=== PATIENT | female | born 1955 | race Caucasian/White ===

== ENCOUNTER → 2016-07-21 | Outpatient (CLI) | payer OTHER | LOC: MMPC 10:00 | PROVIDERS: ATTEND Podiatrist Foot & Ankle Surgery | DX: M79.672 Pain in left foot (principal); L84 Corns and callosities; D49.2 Neoplasm of unspecified behavior of bone, soft tissue, and skin; D16.31 Benign neoplasm of short bones of right lower limb; E10.65 Type 1 diabetes mellitus with hyperglycemia; F17.209 Nicotine dependence, unspecified, with unspecified nicotine-induced disorders; M21.622 Bunionette of left foot; M20.42 Other hammer toe(s) (acquired), left foot; M21.621 Bunionette of right foot | CPT/HCPCS: 11055 ×2; 99213; G0463 ==

== ENCOUNTER → 2016-08-11 | Outpatient (CLI) | payer OTHER | LOC: MMPC 10:00 | PROVIDERS: ATTEND Podiatrist Foot & Ankle Surgery | DX: M19.172 Post-traumatic osteoarthritis, left ankle and foot (principal); E10.65 Type 1 diabetes mellitus with hyperglycemia; F17.209 Nicotine dependence, unspecified, with unspecified nicotine-induced disorders; L98.9 Disorder of the skin and subcutaneous tissue, unspecified | CPT/HCPCS: 11420 ×2; 99213; G0463 ==

== ENCOUNTER → 2016-08-25 | Outpatient (CLI) | payer OTHER | LOC: MMPC 10:00 | PROVIDERS: ATTEND Podiatrist Foot & Ankle Surgery | DX: L81.4 Other melanin hyperpigmentation (principal); E10.9 Type 1 diabetes mellitus without complications; F17.209 Nicotine dependence, unspecified, with unspecified nicotine-induced disorders | CPT/HCPCS: 99212 ==

== ENCOUNTER → 2016-11-09 | Outpatient (CLI) | payer OTHER ==
[2016-11-09 08:54] LABS: HEMOGLOBIN A1C 9.59 % (4.2-6.0)
[2016-11-09 09:01] LABS: BLOOD UREA NITROGEN 17 mg/dL (7-22); BUN/CREATININE RATIO 24.28 (6-20); CALCIUM 9.3 mg/dL (8.7-10.7); CHOL/HDL RATIO 3.08 RATIO (0-4.0); EST GLOMERULAR FILTRATION > 60 (>60 ml/min/1.73m(2)); HDL CHOLESTEROL 78 mg/dL (40-150); SERUM CHOLESTEROL 241 mg/dL (120-200)
[2016-11-09 09:08] LABS: CREATININE, URINE 191.6 MG/DL (15-500)
[2016-11-09 10:43] LABS: FREE T4 (FREE THYROXINE) 1.41 ng/dL (0.93-1.71)
== END ==
LOC: LAB 08:28
PROVIDERS: ATTEND Internal Medicine
DX: E11.9 Type 2 diabetes mellitus without complications (principal); Z79.4 Long term (current) use of insulin; E78.5 Hyperlipidemia, unspecified; E89.0 Postprocedural hypothyroidism; F17.200 Nicotine dependence, unspecified, uncomplicated
CPT/HCPCS: 36415; 80053; 80061; 82043; 82550; 83036; 84439; 84443

== ENCOUNTER → 2016-11-14 | Outpatient (CLI) | payer OTHER ==
--- NOTE | 2016-11-14 14:32 | DI ---
US CAROTIDS B/L,11/14/2016 12:57 PM: Clinical History: Bilateral carotid bruits Previous Exam: None at this facility. Findings: Multiple grayscale and color Doppler sonographic images are obtained through the carotid systems bila terally, and demonstrate dense carotid plaques within the carotid bulbs bilaterally. There is endothelial thickening throughout the remainder of the carotid systems. There is no elevated peak systolic velocity in the right and there is only mild spectral broadening. On the left, there is significant increased peak systolic velocities involving the proximal mid and d istal internal carotid arteries. There is antegrade flow within both vertebral arteries. The ICA to CCA ratio on the right measured 1.5 and on the left measured 4.1. There is significant turbulence within the left internal carotid artery. Impression: Elevated peak systolic velocity within the internal carotid artery on the left corresponding with an estimated degree of stenosis of greater than 70% proximally. Atherosclerotic disease of the right carotid bulb without hemodynamically significant stenosis.
== END ==
LOC: US 12:54
PROVIDERS: ATTEND Internal Medicine
DX: R09.89 Other specified symptoms and signs involving the circulatory and respiratory systems (principal); F17.200 Nicotine dependence, unspecified, uncomplicated
CPT/HCPCS: 93880

== ENCOUNTER → 2017-01-08 | Outpatient (CLI) | payer OTHER ==
[2017-01-08 08:20] LABS: CREATININE, URINE 123.7 MG/DL (15-500); HEMOGLOBIN A1C 8.48 % (4.2-6.0)
[2017-01-08 08:24] LABS: BLOOD UREA NITROGEN 20 mg/dL (7-22); BUN/CREATININE RATIO 28.57 (6-20); CALCIUM 8.7 mg/dL (8.7-10.7); CHOL/HDL RATIO 2.53 RATIO (0-4.0); EST GLOMERULAR FILTRATION > 60 (>60 ml/min/1.73m(2)); HDL CHOLESTEROL 65 mg/dL (40-150); SERUM ALBUMIN 3.6 g/dL (3.5-4.8); SERUM CHOLESTEROL 165 mg/dL (120-200)
== END ==
LOC: LAB 07:54
PROVIDERS: ATTEND Internal Medicine
DX: E10.65 Type 1 diabetes mellitus with hyperglycemia (principal); Z79.4 Long term (current) use of insulin; E78.5 Hyperlipidemia, unspecified; E89.0 Postprocedural hypothyroidism; F17.209 Nicotine dependence, unspecified, with unspecified nicotine-induced disorders
CPT/HCPCS: 36415; 80053; 80061; 82043; 82550; 83036; 84443

== ENCOUNTER → 2017-01-09 | Outpatient (CLI) | payer OTHER | LOC: MMPC 11:11 | PROVIDERS: ATTEND Internal Medicine | DX: E10.9 Type 1 diabetes mellitus without complications (principal); E78.5 Hyperlipidemia, unspecified; E89.0 Postprocedural hypothyroidism; L84 Corns and callosities; Z98.890 Other specified postprocedural states; F17.219 Nicotine dependence, cigarettes, with unspecified nicotine-induced disorders | CPT/HCPCS: 99214; G0463 ==

== ENCOUNTER 2018-07-15 11:08 | Inpatient (IN) ==
[2018-07-15] MEDS ORDERED: ONDANSETRON 4 MG/2 ML VIAL IVP ONE (11:41)
[2018-07-15] MEDS ORDERED: FAMOTIDINE 20 MG/2 ML VIAL IVP ONE (11:41)
[2018-07-15] MEDS ORDERED: Sodium Chloride 0.9% 1,000 ML PRIMARY IV ONE (11:41)
[2018-07-15 11:50] LABS: BASOPHILS # (AUTO) 0.06 10*3/UL; BASOPHILS % (AUTO) 0.6 % (0-1); EOSINOPHILS # (AUTO) 0.01 10*3/UL; EOSINOPHILS % (AUTO) 0.1 % (0-8); Hematocrit [HCT] 44.4 % (37.0-47.0); Hemoglobin [HGB] 14.9 g/dL (12.0-16.0); LYMPHOCYTES # (AUTO) 1.96 10*3/uL; MEAN CORPUSCULAR HEMOGLOBIN 30.9 PG (27-31); MEAN CORPUSCULAR HGB CONC 33.6 g/dL (33-37); MEAN CORPUSCULAR VOLUME 92.1 FL (81-99); MEAN PLATELET VOLUME 11.6 FL (7.4-12.2); MONOCYTES # (AUTO) 0.48 10*3/UL (0.3-0.8); MONOCYTES % (AUTO) 4.4 % (5-15); NEUTROPHILS # (AUTO) 8.35 10*3/UL; NEUTROPHILS % (AUTO) 76.6 % (50-80); PLATELET MORPHOLOGY COMMENT NORMAL MORPHOLOGY (NORM); RBC MORPHOLOGY COMMENT NORMAL MORPHOLOGY (NORM); RED BLOOD COUNT 4.82 10^6/uL (4.20-5.40); WBC MORPHOLOGY COMMENT NORMAL MORPHOLOGY (NORM)
--- NOTE | 2018-07-15 11:53 | EKG ---
[address] [place] [address] Measurements Intervals [place] Rate: 88 P: 69 MI: 163 QRS: 75 QRSD: 90 T: 63 QT: 330 QTc: 376 Interpretive Statements SINUS RHYTHM POSSIBLE LEFT ATRIAL ENLARGEMENT NONSPECIFIC T-WAVE ABNORMALITY Compared to ECG 10/24/2013 16:29:28 Sinus tachycardia no longer present Possible ischemia no longer present T-wave abnormality still present Electronically Signed On 07-15-18 14:34:32 MST by Ozzy Stacy [id number]
[2018-07-15 12:01] LABS: BLOOD UREA NITROGEN 21 mg/dL (7-22); BUN/CREATININE RATIO 26.25 (6-20); LIPASE 41 IU/L (23-300); SERUM ALBUMIN 4.5 g/dL (3.5-4.8)
--- NOTE | 2018-07-15 12:06 | PDOC ---
Nausea/Vomiting/Diarrhea HPI - General Chief Complaint: Nausea / Vomiting / Diarrhea Stated Complaint: NAUSEA/VOMITING Date Seen by Provider: 07/15/18 Time Seen by Provider: 11:25 Source: POSITIVE: Patient Exam Limitations: POSITIVE: No limitations Nurse's Notes Reviewed & Considered: Yes - History of Present Illness Initial Comments: The patient is a 63-year-old female who is a type I diabetic who presents to the emergency department with complaints of elevated blood sugar and nausea and vomiting. She states that she normally takes Levemir 35 units in the evening as well as Humalog sliding scale. She ran out of Levemir 2 nights ago and has been just using sliding scale. For the past 2 days she has had increased nausea and vomiting. She reports frequent urination. She denies significant abdominal pain, chest pain, shortness of breath, headache or any other associated symptoms. - Patient Home Medications Home Medications: Home Medications Aspirin [Aspirin EC] 1 tab ORAL BID #90 tab 08/20/12 Cholecalciferol (Vitamin D3) [Vitamin D-3] 1 cap PO QD #90 cap 08/20/12 Tums 1 tab PO TID #270 tab 08/20/12 Lancets 1 ea SUBCUT ACHS #100 ea 11/26/12 Pen Needle,Dual Safety,Diabetc [Autoshield Duo Pen Needle] 1 ea MC HS #1 box 05/03/13 Insulin Lispro Flexpen Inj [Humalog Flexpen Inj] 10 unit SQ ACHS #1 box 11/09/16 Levothyroxine Sodium 1 tab PO DAILY #90 tab 11/09/16 Lisinopril 1 tab PO BID #180 tab 11/09/16 Rosuvastatin Calcium [Crestor] 1 tab PO DAILY #90 tab 11/09/16 Omeprazole 20 mg PO BID #60 cap 11/14/16 blood sugar diagnostic strips 1 strip MISCELLANEOUS ACHS #400 strip 08/18/17 tramadol 50 mg tablet 50 mg PO Q8H PRN #90 tab 06/14/18 Insulin Detemir Flexpen Inj [Levemir Flexpen Inj] 35 unit SUBCUT BEDTIME 07/15/18 - Patient Allergies Allergies/Adverse Reactions: Allergies Allergy/AdvReac Type Severity Reaction Status Date / Time No Known Drug Allergies Allergy NOT Verified 07/15/18 11:36 APPLICABLE Past Medical History - heen HEENT History: Dentures/Partials Additional HEENT History: UPPER Cardiovascular History: Hyperlipidemia Respiratory History: Denies History Gastrointestinal History: GERD Additional Gastrointestinal History: CONSTIPATION. SEVERE ESOPHAGITIS ON EGD Genitourinary History: Denies History Endocrine History: Type 1 Diabetes Additional Endocrine History: GRAVES DISEASE IN PAST, THYROIDECTOMY Musculoskeletal History: Back Pain, Osteoarthritis Prosthesis or Implant: Yes (LEFT tibia ORIF) Additional Musculoskeletal History: DEGENERATIVE DISC DISEASE Neurological History: Denies History Blood Disorders: Denies History Psychiatric History: Denies History History of Sexually Transmitted Diseases: No Female Reproductive History: Denies History LMP: post priya Obstetrical History: Denies History Cancer History: Denies History In Past Year Been Physically Harmed or Verbally Threatened: No History of MDRO: No History of Other Communicable Diseases: No Tobacco Use: Current Every Day Smoker Alcohol Use: Rarely In the Past 12 Months, Have Used or Abuse Any Substance: None Previous Surgical History: Yes Type / Date of Surgery: EGD/ LEFT TIBIA FX WITH HWR/ THYROIDECTOMY/ CERVICAL FUSION Anesthesia Reactions: No Malignant Hyperthermia: No Significant Family History: No pertinent family hx Past Medical History Reviewed: Reviewed - No Changes ROS - Limitations ROS Limitations: No Limitations Constitution: DENIES: Fever Cardiovascular: REPORTS: Denies Cardiac Symptoms Respiratory: REPORTS: Denies Resp Symptoms Neurological: REPORTS: Denies Neuro Symptoms Gastrointestinal: REPORTS: Nausea, Vomitting Endocrine: REPORTS: Fatigue Musculoskeletal: REPORTS: Denies MS Symptoms Genitourinary: REPORTS: Other (Frequent urination). DENIES: Dysuria, Difficulty Urinating Eyes: REPORTS: Denies Symptoms ENT: REPORTS: Denies Symptoms Skin: DENIES: Rash Nausea/Vomiting/Diarrhea Exam - General Appearance General Appearance: POSITIVE: Alert, Cooperative, No Acute Distress - HEENT HEENT: POSITIVE: Head Inspection Nml, Eyes Inspection Nml, Ears Inspection Nml, Nose Inspection Nml, Pharynx Inspect. Nml - Neck Neck: POSITIVE: Supple. NEGATIVE: Lymphadenopathy - Respiratory Respiratory: POSITIVE: No Respiratory Distress, Breath Sounds Normal - Cardiovascular Cardiovascular: POSITIVE: Regular Rate and Rhythm, Heart Sounds Normal Peripheral Pulses: Dorsalis-pedis (R): 2+, Dorsalis-pedis (L): 2+ - Abdomen Abdomen: Soft: (All Quadrants), Denies Tenderness: (All Quadrants), No Distention: (All Quadrants) - Skin Skin: POSITIVE: Intact, No Rash - Extremities Extremity: Normal ROM: (All Extremities), Normal Inspection: (All Extremities) - Neurological / Psychological Neurological: POSITIVE: Oriented X3, release engineer Normal As Tested, Motor Normal, Sensation Normal N/V/D Progress - Results Reviewed by me Lab Results Reviewed by Me: Yes CBC and BMP: 07/15/18 11:08 07/15/18 11:08 Lab Results:: Laboratory Results 07/15/18 07/15/18 07/15/18 11:08 11:08 11:08 WBC 10.89 H RBC 4.82 Hgb 14.9 Hct 44.4 MCV 92.1 MCH 30.9 MCHC 33.6 RDW Std Deviation 46.6 RDW Coeff of Zachary 14.0 Plt Count 284 MPV 11.6 Immature Gran % (Auto) 0.3 Neut % (Auto) 76.6 Lymph % (Auto) 18.0 [place] % (Auto) 4.4 L Eos % (Auto) 0.1 Baso % (Auto) 0.6 Immature Gran # (Auto) 0.03 Neut # (Auto) 8.35 Lymph # (Auto) 1.96 [place] # (Auto) 0.48 Eos # (Auto) 0.01 Baso # (Auto) 0.06 WBC Morphology Comment Normal morphology Plt Morphology Comment Normal morphology RBC Morph Comment Normal morphology VBG pH VBG pCO2 VBG HCO3 VBG Base Excess Sodium 137 Potassium 4.3 Chloride 109 Carbon Dioxide 16 L Anion Gap 12 BUN 21 Creatinine 0.8 Estimated GFR > 60 BUN/Creatinine Ratio 26.25 H Glucose 318 H Calculated Osmolality 298.0 H Calcium 10.1 Magnesium 2.3 Total Bilirubin 0.8 AST 29 ALT 18 Alkaline Phosphatase 173 H Troponin I < 0.012 C-Reactive Protein 0.6 Total Protein 7.6 Albumin 4.5 Globulin 3.0 Albumin/Globulin Ratio 1.50 Amylase 32 Lipase 41 07/15/18 11:58 WBC RBC Hgb Hct MCV MCH MCHC RDW Std Deviation RDW Coeff of Zachary Plt Count MPV Immature Gran % (Auto) Neut % (Auto) Lymph % (Auto) [place] % (Auto) Eos % (Auto) Baso % (Auto) Immature Gran # (Auto) Neut # (Auto) Lymph # (Auto) [place] # (Auto) Eos # (Auto) Baso # (Auto) WBC Morphology Comment Plt Morphology Comment RBC Morph Comment VBG pH 7.31 L VBG pCO2 30 L VBG HCO3 15 L VBG Base Excess -11 L Sodium Potassium Chloride Carbon Dioxide Anion Gap BUN Creatinine Estimated GFR BUN/Creatinine Ratio Glucose Calculated Osmolality Calcium Magnesium Total Bilirubin AST ALT Alkaline Phosphatase Troponin I C-Reactive Protein Total Protein Albumin Globulin Albumin/Globulin Ratio Amylase Lipase EKG Interpreted/Reviewed By Me:: Yes EKG Interpretation:: POSITIVE: Normal Sinus Rhythm, Normal Rate, Normal Intervals, Normal QRS, Normal ST/T, Other (No changes when compared to previous EKG from 2013) - Patient's Progress MDM / ED Course: The patient appeared to be somewhat clinically dehydrated on arrival. An IV was established and she received 1 L bolus of normal saline as well as 4 mg of Zofran and 20 mg of Pepcid IV. Initial venous blood gas reveals a pH of 7.30. She has a mildly elevated white count and her blood sugar here initially was 318. Her bicarbonate is 16 and her anion gap was registered as 22 on the venous blood gas and 12 on the lab draw. She appears to have mild DKA. She is feeling better after administration of fluids and her blood sugar has come down to 260. I did discuss these findings with the patient and her significant other. I also discussed the patient with Dr. Hinson and he is agreed to admit the patient for further treatment. The patient also prefers being admitted and is in agreement with this plan. - Consult Counseled: POSITIVE: Patient, Family, RE: Lab Results, RE: DX, RE: Need for F/U Patient Care Time - Estimated PCT Patient Care Time (In Minutes): 35 Vital Signs - Recent Vital Signs Vital Signs: Vital Signs (Last 8 hours) Temp Pulse Resp BP Pulse Ox 07/15/18 11:09 97.0 F 101 H 20 101/67 96 - VS Reviewed Vital Signs Reviewed: Yes Discharge Clinical Impression: DKA (diabetic ketoacidoses), Diabetes mellitus type 1, Dehydration, Nausea and vomiting Discharge Disposition: Admit to Observation Condition: Fair Follow Up With: PROSPER CIHNCHILLA [Primary Care Provider] -
[2018-07-15 12:35] LABS: VENOUS PH 7.31 (7.32-7.42)
--- NOTE | 2018-07-15 14:02 | PDOC ---
HPI - History of Present Illness Date of Service: 07/15/18 Time of Service: 15:00 Chief Complaint: Vomiting of 2-3 days duration with a high blood sugar for the last 3 days History of Present Illness: This is a 63 years old female with medical history significant for history of diabetes on insulin, hyperlipidemia, history of Graves' disease status post surgery on thyroid replacement who presented to the hospital with history of vomiting and high blood sugar the last 3 days. She said she vomited maybe 4 times yesterday and 3 times this morning. She is on Levemir 35 units at night however she was not able to get her medications refilled and she ran out on Monday. She is beginning giving herself short-acting insulin. Today her blood sugar was high in the 400 and because of the vomiting and high blood sugars she came into the ER. Evaluation revealed mild DKA she was given fluids and was admitted. She feels better compared to when she came in. She said she is hungry now. Past Medical History Medical History: 1. Diabetes on insulin. 2. Hypercholesterolemia. 3. Hypertension. 4. History of left carotid endarterectomy. 5. History of Graves' disease status post surgery Surgical History: 1. Status post left endarterectomy. 2. Status post thyroidectomy Family History: Reviewed an Not Pertinent Past Social History: She is smoker maybe three-quarter of for a pack a day for many years, doesn't drink no drugs. Lives in [place] with her . Tobacco Use: Current Every Day Smoker Do you dip or chew tobacco: No In the Past 12 Months, Have Used or Abuse Any of the Following Substance: None Alcohol Use: None Medication / Allergies Home Medications: Home Medications Medication Instructions Recorded Confirmed Type Aspirin [Aspirin EC] 1 tab ORAL BID #90 tab 08/20/12 07/15/18 History Cholecalciferol (Vitamin D3) 1 cap PO QD #90 cap 08/20/12 07/15/18 History [Vitamin D-3] Tums 1 tab PO TID #270 tab 08/20/12 07/15/18 Clinic Lancets 1 ea SUBCUT ACHS #100 ea 11/26/12 07/15/18 History Pen Needle,Dual Safety,Diabetc 1 ea MC HS #1 box 05/03/13 07/15/18 History [Autoshield Duo Pen Needle] Insulin Lispro Flexpen Inj 10 unit SQ ACHS #1 box 11/09/16 07/15/18 Rx [Humalog Flexpen Inj] Levothyroxine Sodium 1 tab PO DAILY #90 tab 11/09/16 07/15/18 Rx Lisinopril 1 tab PO BID #180 tab 11/09/16 07/15/18 Rx Rosuvastatin Calcium [Crestor] 1 tab PO DAILY #90 tab 11/09/16 07/15/18 Rx Omeprazole 20 mg PO BID #60 cap 11/14/16 07/15/18 Rx blood sugar diagnostic strips 1 strip MISCELLANEOUS ACHS #400 08/18/17 07/15/18 Rx strip tramadol 50 mg tablet 50 mg PO Q8H PRN #90 tab 06/14/18 07/15/18 Rx Insulin Detemir Flexpen Inj 35 unit SUBCUT BEDTIME 07/15/18 07/15/18 History [Levemir Flexpen Inj] Allergies/Adverse Reactions: Allergies Allergy/AdvReac Type Severity Reaction Status Date / Time No Known Drug Allergies Allergy NOT Verified 07/15/18 11:36 APPLICABLE Review of Systems - Review of Systems All Systems: Reviewed & No Additional Complaints Except as Stated Exam - Vitals Vital Signs: Vital Signs Temperature 97.0 F Temperature Source Temporal Artery Scan Pulse Rate [Pulse Oximeter 101 Right] Respiratory Rate 20 Blood Pressure [Left Arm] 101/67 Pulse Ox 96 Oxygen Delivery Method Room Air Height 5 ft 6 in Weight 160 lb - General General Appearance: No Acute Distress, Cooperative - Head Head Exam: Normal Inspection - Eye Eye Exam: POSITIVE: Normal Appearance - ENT ENT Exam: POSITIVE: Normal Exam - Neck Neck Exam: Normal Inspection - Respiratory Respiratory Exam: POSITIVE: Clear to Auscultation - Bilaterally - Cardiovascular Cardiovascular Exam: POSITIVE: RRR - GI/Abdominal GI/Abdominal Exam: POSITIVE: Normal Bowel Sounds, Non Tender, Non Distended, Soft, No Organomegaly - Rectal Rectal Exam: POSITIVE: Deferred - External Exam: POSITIVE: Deferred - Extremities Extremities Exam: POSITIVE: Normal Inspection - Back Back Exam: POSITIVE: Normal Inspection - Neurological Neurological Exam: POSITIVE: Alert, Oriented x 3, CN II-XII Intact, No Facial Droop, Speech Intact / Clear, Moves All Extremities Equally - Psychiatric Psychiatric Exam: POSITIVE: Normal Affect - Integumentary Integumentary Exam: POSITIVE: Normal Color Results - Labs CBC and BMP: 07/15/18 11:08 07/15/18 11:08 - EKG Data -: EKG Interpreted by Me Rate: Normal EKG Shows Normal: Sinus Rhythm (Sinus rhythm, possible left atrial enlargement and nonspecific T-wave changes) Assessment and Plan - Patient Problems (1) DKA (diabetic ketoacidoses) Current Visit: Yes Status: Acute Comment: She had mild DKA, her blood sugar seems to be better now. I think will give IV fluid. Will put her on sliding scale and will reinstitute her Levemir tonight. Will repeat her labs tomorrow see how she feels tomorrow. Code(s): E13.10 - Other specified diabetes mellitus with ketoacidosis without coma (2) History of hypothyroidism Current Visit: Yes Status: Acute Comment: Same med Code(s): Z86.39 - Personal history of other endocrine, nutritional and metabolic disease (3) Hypertension Current Visit: Yes Status: Acute Comment: Continue lisinopril Code(s): I10 - Essential (primary) hypertension
[2018-07-15] MEDS ORDERED: LIDOCAINE W/ SODIUM BICARB 0.5 ML SYR SUBD PRN (14:40)
[2018-07-15] MEDS ORDERED: ACETAMINOPHEN 325 MG TABLET PO PRN (14:40)
[2018-07-15] MEDS ORDERED: CALCIUM CARBONATE 500 MG (TUMS) CHEWABLE TABLET PO PRN (14:40)
[2018-07-15] MEDS ORDERED: DOCUSATE 100 MG CAPSULE PO PRN (14:40)
[2018-07-15] MEDS ORDERED: ONDANSETRON 4 MG/2 ML VIAL IVP PRN (14:40)
[2018-07-15] MEDS ORDERED: traMADol 50 MG TABLET PO PRN (14:42)
[2018-07-15] MEDS: Lactated Ringers 1,000 ML PRIMARY IV SCH ×2 (15:28→22:59)
[2018-07-15] MEDS: Insulin Lispro Flexpen 300 UNIT/3 ML INSULN.PEN SUBCUT SCH ×2 (16:29→21:19)
[2018-07-15] MEDS: Insulin Detemir 300unit/3ml Flexpen SUBCUT SCH (21:19)
[2018-07-15] MEDS: LISINOPRIL 5 MG TABLET PO SCH (21:21)
[2018-07-15] MEDS: ASPIRIN EC 81 MG TABLET PO SCH (21:21)
[2018-07-15] MEDS: OMEPRAZOLE 20 MG CAPSULE PO SCH (21:21)
[2018-07-16] MEDS: LEVOTHYROXINE 125 MCG TABLET PO SCH (04:44)
[2018-07-16] MEDS: Lactated Ringers 1,000 ML PRIMARY IV SCH ×3 (04:45→20:34)
[2018-07-16 05:45] LABS: BASOPHILS # (AUTO) 0.05 10*3/UL; BASOPHILS % (AUTO) 0.6 % (0-1); EOSINOPHILS # (AUTO) 0.18 10*3/UL; Hemoglobin [HGB] 11.4 g/dL (12.0-16.0); LYMPHOCYTES # (AUTO) 3.26 10*3/uL; MEAN CORPUSCULAR HEMOGLOBIN 30.8 PG (27-31); MEAN CORPUSCULAR HGB CONC 33.5 g/dL (33-37); MEAN CORPUSCULAR VOLUME 91.9 FL (81-99); MEAN PLATELET VOLUME 11.1 FL (7.4-12.2); MONOCYTES # (AUTO) 0.48 10*3/UL (0.3-0.8); MONOCYTES % (AUTO) 5.4 % (5-15); NEUTROPHILS # (AUTO) 4.84 10*3/UL; NEUTROPHILS % (AUTO) 54.9 % (50-80)
[2018-07-16 05:56] LABS: BLOOD UREA NITROGEN 23 mg/dL (7-22); BUN/CREATININE RATIO 38.33 (6-20); SERUM ALBUMIN 2.6 g/dL (3.5-4.8)
[2018-07-16 06:01] LABS: PLATELET MORPHOLOGY COMMENT NORMAL MORPHOLOGY (NORM); RBC MORPHOLOGY COMMENT NORMAL MORPHOLOGY (NORM); WBC MORPHOLOGY COMMENT NORMAL MORPHOLOGY (NORM)
[2018-07-16 07:22] LABS: HEMOGLOBIN A1C 12.65 % (4.2-6.0)
[2018-07-16] MEDS: Insulin Lispro Flexpen 300 UNIT/3 ML INSULN.PEN SUBCUT SCH ×4 (07:28→20:35)
[2018-07-16] MEDS: ASPIRIN EC 81 MG TABLET PO SCH ×2 (08:21→20:35)
[2018-07-16] MEDS: OMEPRAZOLE 20 MG CAPSULE PO SCH ×2 (08:21→20:35)
[2018-07-16] MEDS: CHOLECALCIFEROL 1000 IU TABLET PO SCH (08:21)
[2018-07-16] MEDS ORDERED: Sodium Chloride 0.9% 1,000 ML PRIMARY IV ONE ×2 (08:23→09:49)
[2018-07-16] MEDS: LISINOPRIL 5 MG TABLET PO SCH (08:29)
--- NOTE | 2018-07-16 10:24 | DI ---
XR CXR 1VW 07/16/2018 8:56 AM HISTORY: [facility] ^DKA, hypotension, SOB Comparison: None. Findings: A single PA view of the chest demonstrates normal aeration without focal consolidation. A c alcified granuloma projects over the left lateral lower lung. There is no pneumothorax or pleural eff usion. The cardiomediastinal silhouette is normal in size with atheromatous calcifications in the arc h of the tortuous thoracic aorta. The osseous structures are notable for degenerative and surgical ch anges at the cardiothoracic junction. Surgical clips project over the lower neck and upper mediastinu m bilaterally. Impression: No radiographic evidence of acute cardiopulmonary process.
--- NOTE | 2018-07-16 11:25 | EKG ---
[address] [address] Measurements Intervals [place] Rate: 76 P: 69 [place]: 162 QRS: 68 QRSD: 93 T: 62 QT: 419 QTc: 449 Interpretive Statements SINUS RHYTHM Compared to ECG 07/15/2018 11:53:52 T-wave abnormality no longer present Electronically Signed On 07-16-18 13:08:18 MST by Ozzy Stacy [id number]
--- NOTE | 2018-07-16 11:35 | PDOC(PROG) ---
Date of Service: 07/16/18 Time of Service: 11:29 Interval History: Patient states that she feels like she's had some chest pressure, no nausea or vomiting. States she feels short of breath but not requiring oxygen. Blood pressures and been hypotensive today. Lisinopril started yesterday. No urinary complaints. Objective : Data - Labs CBC and BMP: 07/16/18 05:15 07/16/18 05:15 Additional Lab Results: I am waiting on a troponin and a d-dimer - Imaging X-Ray Status: Image Reviewed by Me (I don't think there is any evidence of pneumonia, but the lungs looked a little hyperexpanded probably consistent with COPD.) - EKG Data -: EKG Interpreted by Me Rate: Normal EKG Shows Normal: Sinus Rhythm Objective : Exam - General General Appearance: No Acute Distress, Cooperative Additional General Exam Details: Vital Signs - Last Taken Temperature 97.5 F 07/16/18 07:19 Pulse Rate 74 07/16/18 10:30 Respiratory Rate 16 07/16/18 10:30 Blood Pressure 102/49 07/16/18 10:30 Pulse Ox 96 07/16/18 10:30 Blood pressure up after 1-1/2 L of normal saline boluses - Head Head Exam: Normal Inspection, Normocephalic, Atraumatic - Eye Eye Exam: No Scleral Icterus - ENT ENT Exam: Mucous Membranes Moist - Respiratory Respiratory Exam: Breathing Non Labored, Crackles (In both bases bilaterally), Coarse Breath Sounds - Cardiovascular Cardiovascular Exam: RRR, No Murmur, No Clicks, No Gallops, No Rubs, No JVD - GI/Abdominal GI/Abdominal Exam: Normal Bowel Sounds, Non Tender, Non Distended, Soft - Extremities Extremities Exam: No Clubbing Present, No Edema Present, No Cyanosis Present - Neurological Neurological Exam: Alert, Oriented x 3, No Facial Droop, Speech Intact / Clear, Moves All Extremities Equally Assessment and Plan - Patient Problems (1) Poorly controlled diabetes mellitus Current Visit: Yes Status: Acute Code(s): E11.65 - Type 2 diabetes mellitus with hyperglycemia (2) Chest pressure Current Visit: Yes Status: Acute Code(s): R07.89 - Other chest pain (3) Hypertension Current Visit: Yes Status: Acute Code(s): I10 - Essential (primary) hypertension Qualifiers: Hypertension type: essential hypertension Qualified Code(s): I10 - Essential (primary) hypertension (4) DKA (diabetic ketoacidoses) Current Visit: Yes Status: Resolved Code(s): E13.10 - Other specified diabetes mellitus with ketoacidosis without coma Qualifiers: Diabetes mellitus type: type 1 Diabetes mellitus complication detail: without coma Qualified Code(s): E10.10 - Type 1 diabetes mellitus with ketoacidosis without coma (5) History of hypothyroidism Current Visit: Yes Status: Acute Code(s): Z86.39 - Personal history of other endocrine, nutritional and metabolic disease (6) Hypotension Current Visit: Yes Status: Acute Code(s): I95.9 - Hypotension, unspecified Qualifiers: Hypotension type: unspecified hypotension type Qualified Code(s): I95.9 - Hypotension, unspecified - Assessment / Plan Additional Assessment/Plan Details: Given the hypotension, admitted to inpatient. I'm not sure what's going on in terms of the chest pressure support an EKG which is normal sinus rhythm, get a troponin and a d-dimer to look for potential cardiac and/or lung issues. IV boluses of normal saline. Chest x-ray appears negative for pneumonia. I think it's consistent with COPD. Question COPD exacerbation Hold off on lisinopril and discontinue for now. Continue insulin and before meals and at bedtime blood sugars Will discuss further with patient, her son, and her daughter over the phone, sooner as further results are back.
[2018-07-16 13:58] LABS: BILIRUBIN,URINE NEGATIVE (NEG); CLARITY,URINE CLEAR (CLEAR); COLOR,URINE YELLOW (Y); GLUCOSE, URINE (UA) 500 mg/dL (NEG); OCCULT BLOOD,URINE NEGATIVE (NEG); PROTEIN,URINE NEGATIVE (NEG)
[2018-07-16 13:59] LABS: URINE SAMPLE TYPE CATH SPECIMEN
--- NOTE | 2018-07-16 14:35 | DI ---
CT CTA Chest Non-Coronary O 07/16/2018 11:54 AM History: [facility] [place] ^chest pressure, hypotension, question PE Comparison: Chest x-ray from earlier the same day. Procedure: CT angiography of the pulmonary arteries was performed after the administration of 65 mL o f Isovue intravenous contrast. Findings: There is normal opacification of the pulmonary arteries with no evidence of filling defect. Evaluation of the lungs demonstrates no dense consolidation or pneumothorax. There is a tiny right p leural effusion. There is bibasilar atelectasis versus scar. There is a calcified granuloma in the li ngula. Calcified mediastinal and left hilar lymph nodes are noted. There is no mediastinal or hilar l ymphadenopathy. The aorta and branch vessels demonstrate normal course and caliber. There are atherom atous aortic and coronary artery calcifications. Heart size is within normal limits with no pericardi al effusion. There are surgical changes in the lower neck, likely related to a left hemithyroidectomy . The visualized upper abdominal structures are notable for calcified splenic granulomata. The osseous structures are notable for degenerative changes of the spine with anterior fusion of the lower cervical levels. There is no evidence of acute or healing rib fractures. Impression: 1. No main or segmental pulmonary embolism. 2. Tiny right pleural effusion. 3. There is evidence of prior granulomatous infection.
[2018-07-16] MEDS: Insulin Detemir 300unit/3ml Flexpen SUBCUT SCH (20:35)
[2018-07-17] MEDS: Lactated Ringers 1,000 ML PRIMARY IV SCH ×2 (04:37→10:01)
[2018-07-17] MEDS: LEVOTHYROXINE 125 MCG TABLET PO SCH (04:37)
[2018-07-17 05:35] LABS: CHOL/HDL RATIO 3.16 RATIO (0-4.0)
[2018-07-17] MEDS ORDERED: DEXTROSE 50%-WATER SYRINGE 50 ML SYRINGE IVP STA (07:17)
[2018-07-17] MEDS ORDERED: DEXTROSE 50%-WATER SYRINGE 50 ML SYRINGE IVP ONE (07:48)
[2018-07-17] MEDS: Insulin Lispro Flexpen 300 UNIT/3 ML INSULN.PEN SUBCUT SCH ×2 (08:08→11:10)
[2018-07-17 08:49] VITALS: RESP 18
[2018-07-17] MEDS ORDERED: ASPIRIN 325 MG TABLET PO SCH (09:00)
[2018-07-17] MEDS: CHOLECALCIFEROL 1000 IU TABLET PO SCH (09:05)
[2018-07-17] MEDS: ASPIRIN EC 81 MG TABLET PO SCH (09:06)
[2018-07-17] MEDS: OMEPRAZOLE 20 MG CAPSULE PO SCH (09:06)
[2018-07-17 11:05] VITALS: BP 140/63; TEMP 97.4; O2SAT 96
--- NOTE | 2018-07-17 12:42 | DI ---
2 DAY LEXISCAN STRESS & REST MYOCARDIAL PERFUSION SCANS, 07/16/2018 1:00 PM : [place] [facility] [place]st pressure, hypotension, diabetes Comparison: None at this facility. The patient was stressed by Dr. Hodges. The standard Lexiscan protocol was used. Please see the Doctor's report. Stress scans were performed on 07/17/2017; the resting scans were performed on 07/16/2017. At the designated time following commencement of stress testing, 36.7 mCi of Tc-99m Sestamibi was inj ected IV. Stress gated tomograms were acquired within one hour of the injection. For the resting scans, 37.2 mCi was injected IV and resting gated tomograms were acquired in a simila r fashion. Quantitative and qualitative analyses were performed. Quantitative analysis was performed with the [place] [facility] - [facility] [id number] protocols. Very low dose limited CT scans of the chest are o btained through the level of the heart for attenuation correction of the stress and rest cardiac SPEC T data. Attenuation corrected and non-attenuation corrected scans were processed for review, and the attenuation corrected scans were used for final interpretation of this study. Gating information reveals 100 and % accepted beats. There is no significant breast attenuation. Ther e is no significant diaphragmatic attenuation. There is no significant gut cross talk. There is a small, mild reversible defect involving the distal anterior wall. Summed Stress Score (SSS ) is 3 and Summed Difference Score (SDS) is 3. There is normal wall motion. There is no significant w all thickening. Stress and rest left ventricular ejection fraction (LVEF) are 65 % and 75 %, respecti vely. Transient ischemic dilatation ratio (TID) is 1.08, with a normal range up to 1.2 for patients s tressed with the Robert protocol and up to 1.4 for patients stressed with the Lexiscan protocol. The very low dose CT scans through the level of the heart show no significant coronary artery calcifi cations. There is no adenopathy. Calcified mediastinal and left hilar lymph nodes are present. Heart size is normal without pericardial effusion. There are scattered atheromatous aortic calcifications. There is bibasilar dependent atelectasis. A tiny right pleural effusion is noted. There is no pulmona ry nodule. A calcified granuloma is noted in the lingula. There are calcified splenic granulomata. Ca ptured upper abdominal solid organs and hollow viscera are otherwise unremarkable. There are degenera tive changes of the spine without aggressive osseous lesion. Impression: 1. Small, mild reversible defect involving the distal anterior wall. SSS is 3 and SDS is 3. 2. Normal wall motion on stress and rest. 3. Stress and rest LVEF are 65 % and 75 %, respectively. 4. TID ratio is 1.08.
[2018-07-17] MEDS ORDERED: ASPIRIN 325 MG TABLET PO ONE (13:01)
[2018-07-17] MEDS ORDERED: ASPIRIN 81 MG (BABY) CHEWABLE TABLET PO ONE (13:01)
[2018-07-17] MEDS ORDERED: Metoprolol TARTRATE Tab 25 MG TAB PO ONE (13:37)
--- NOTE | 2018-07-17 13:45 | DCSUMMARY ---
Hospitalization Summary Admit Date: 07/15/2017 Discharge Date: 07/17/18 Primary Diagnosis:: unstable angina Secondary Diagnosis:: Diabetic ketoacidosis, resolved with poorly controlled diabetes mellitus type I Hospital Course: This very pleasant 63-year-old female who presented on 07/15/2017 with vomiting and blood sugars in the 400s and slightly reduced CO2 consistent with diabetic ketoacidosis. She was admitted in the setting of diabetic ketoacidosis and was treated and that resolved. Actually resolved very quickly. Apparently the story was that she could not get her long-acting insulin, tresiba, but she was started on Levemir here and that seemed to work very well. She would've gone home on the seventh, but developed hypotension of unclear etiology. Infectious workup was negative with a negative chest x-ray, negative urinalysis, and CBC. Troponins were negative and the patient noted that she had chest pressure with hypotension. Given her risk factors of tobacco abuse, diabetes mellitus type I, family history of heart disease, hypertension, and hypercholesterolemia, I felt it would be best to do a stress test on the patient. It came back positive for small anterior wall defect. I spoke with cardiology, Dr. Marshall, and he agreed to accept the patient in [place]. We will transfer the patient is sent as a bed opens up today for continued workup and evaluation of unstable angina. I will also start the patient on a beta marietta. She was started on lisinopril the day prior to the hypotension, and I am not sure if that was related to the hypotension or not as I typically do not see that robust of a response to a low dose of lisinopril (5 mg twice a day). Today, her chest pressure is improved/resolved. No shortness of breath. No nausea or vomiting. Assessment and Plan: 1. As per discharge assessments noted 2. Disposition: Patient is discharged to [facility] 3. Condition on discharge, stable and improved to the best of our ability. Obviously, given her condition of unstable angina, her condition could deteriorate. 4. Diet: regular diet for now 5. Activities: As per physician's at [facility] 6. Follow-Up: 1. Dr. Drummond one week post discharge from [facility] 2. 7. Medications at the Time of Discharge: Active Medications Generic Name Dose Route Start Last Admin Trade Name Freq PRN Reason Stop Dose Admin Acetaminophen 650 mg 07/15/18 14:40 Tylenol PO Q6H PRN Pain or Fever Aspirin 81 mg 07/15/18 21:00 07/17/18 09:06 Aspirin Ec PO 81 mg BID FARHANA Administration Calcium Carbonate 1 - 2 tab 07/15/18 14:40 Tums PO Q6H PRN Heartburn Cholecalciferol 2,000 iu 07/16/18 09:00 07/17/18 09:05 Vitamin D3 PO 2,000 iu DAILY FARHANA Administration Docusate Sodium 100 mg 07/15/18 14:40 Colace PO BID PRN Constipation Sodium Chloride 25 mls @ 200 mls/hr 07/15/18 14:40 Normal Saline 0.9% IV .Post Infusion PRN No Primary IV for Flush ONLY Insulin Detemir 35 unit 07/15/18 21:00 07/16/18 20:35 Levemir Flexpen Inj SUBCUT 35 unit BEDTIME FARHANA Administration Insulin Human Lispro 0 - 16 unit 07/16/18 07:00 07/17/18 11:10 Humalog Flexpen Inj SUBCUT Not Given AC HS [facility] Protocol Levothyroxine Sodium 125 mcg 07/16/18 05:30 07/17/18 04:37 Synthroid PO 125 mcg DAILY@0530 FARHANA Administration Lidocaine HCl 0.5 ml 07/15/18 14:40 Lidocaine Buffered Inj SUBD ONCE PRN IV Starts Metoprolol Tartrate 25 mg 07/17/18 13:37 Lopressor Tab PO 07/17/18 13:38 ONCE ONE Metoprolol Tartrate 25 mg 07/17/18 21:00 Lopressor Tab PO BID FARHANA Omeprazole 20 mg 07/15/18 21:00 07/17/18 09:06 Prilosec PO 20 mg BID FARHANA Administration Ondansetron HCl 4 mg 07/15/18 14:40 Zofran Inj IVP Q4H PRN NAUSEA / VOMITING Tramadol HCl 50 mg 07/15/18 14:42 Ultram PO Q8H PRN pain Patient seen and evaluated twice today. 8. Time, care, counseling and coordination of care for this discharge is greater than 30 minutes. Exam - Vitals Vital Signs: Vital Signs Temperature 97.4 F Temperature Source Temporal Artery Scan Pulse Rate [Pulse Oximeter 73 Right] Pulse Rate 88 Respiratory Rate 18 Blood Pressure [Right Arm] 140/63 Pulse Ox 96 Oxygen Delivery Method Room Air Height 5 ft 6 in Weight 164 lb 8 oz - General General Appearance: No Acute Distress, Cooperative - Head Head Exam: Normal Inspection, Normocephalic, Atraumatic - Eye Eye Exam: POSITIVE: No Scleral Icterus - ENT ENT Exam: POSITIVE: Mucous Membranes Moist - Neck Neck Exam: JVP is not Raised - Respiratory Respiratory Exam: POSITIVE: Clear to Auscultation - Bilaterally, Breathing Non Labored - Cardiovascular Cardiovascular Exam: POSITIVE: RRR, No Murmur, No Clicks, No Gallops, No Rubs, No JVD - GI/Abdominal GI/Abdominal Exam: POSITIVE: Normal Bowel Sounds, Non Tender, Non Distended, Soft - Extremities Extremities Exam: POSITIVE: No Clubbing Present, No Edema Present, No Cyanosis Present - Neurological Neurological Exam: POSITIVE: Alert, Oriented x 3, No Facial Droop, Speech Intact / Clear, Moves All Extremities Equally - Psychiatric Psychiatric Exam: POSITIVE: Normal Affect, Normal Mood Data Peritnent Studies: 07/16/18 07/16/18 07/16/18 05:15 05:15 05:15 WBC 8.82 Hgb 11.4 L Hct 34.0 L Plt Count 211 D-Dimer Sodium 136 Potassium 4.1 Chloride 109 Carbon Dioxide 25 Anion Gap 2 L BUN 23 H Creatinine 0.6 Estimated GFR > 60 BUN/Creatinine Ratio 38.33 H Glucose 147 H Hemoglobin A1c 12.65 H Calculated Osmolality 288.0 Calcium 8.8 Total Bilirubin 0.6 AST 11 ALT 33 D Alkaline Phosphatase 106 Troponin I Total Protein 4.7 L Albumin 2.6 L Globulin 2.1 L Albumin/Globulin Ratio 1.20 L Triglycerides Cholesterol LDL Cholesterol, Calc VLDL Cholesterol HDL Cholesterol Cholesterol/HDL Ratio Ur Culture Indicated? 07/16/18 07/16/18 07/16/18 11:25 11:25 13:54 WBC Hgb Hct Plt Count D-Dimer 0.98 H Sodium Potassium Chloride Carbon Dioxide Anion Gap BUN Creatinine Estimated GFR BUN/Creatinine Ratio Glucose Hemoglobin A1c Calculated Osmolality Calcium Total Bilirubin AST ALT Alkaline Phosphatase Troponin I < 0.012 Total Protein Albumin Globulin Albumin/Globulin Ratio Triglycerides Cholesterol LDL Cholesterol, Calc VLDL Cholesterol HDL Cholesterol Cholesterol/HDL Ratio Ur Culture Indicated? Culture not set 07/16/18 07/17/18 07/17/18 17:08 04:40 04:40 WBC Hgb Hct Plt Count D-Dimer Sodium Potassium Chloride Carbon Dioxide Anion Gap BUN Creatinine Estimated GFR BUN/Creatinine Ratio Glucose Hemoglobin A1c Calculated Osmolality Calcium Total Bilirubin AST ALT Alkaline Phosphatase Troponin I < 0.012 < 0.012 Total Protein Albumin Globulin Albumin/Globulin Ratio Triglycerides 74 Cholesterol 187 LDL Cholesterol, Calc 113.200 VLDL Cholesterol 14 HDL Cholesterol 59 Cholesterol/HDL Ratio 3.16 Ur Culture Indicated? Procedures: [address] Medicine[address] [facility] [place] [address] PH: DD: [phone] FAX: [phone] ~DIAGNOSTIC IMAGING REPORT~ Patient: GERRY MATTHEW : 1955 Sex: F Age: 63 Exam Name: IN Myocardial Multi-Spect Exam Date: 07/16/18 Report # : [id number] CPT Code: 89632 EMR/MR #: [id number] Ordering: IRENE JONES Admiting: SVETLANA LANGE MD. Primary: Kev Drummond MD Attending: IRENE JONES DO Signed 2 DAY LEXISCAN STRESS & REST MYOCARDIAL PERFUSION SCANS, 07/16/2018 1:00 PM : History: [facility] ^chest pressure, hypotension, diabetes Comparison: None at this facility. The patient was stressed by Dr. Jones. The standard Lexiscan protocol was used. Please see the Doctor's report. Stress scans were performed on 07/17/2017; the resting scans were performed on 07/16/2017. At the designated time following commencement of stress testing, 36.7 mCi of Tc- 99m Sestamibi was injected IV. Stress gated tomograms were acquired within one hour of the injection. For the resting scans, 37.2 mCi was injected IV and resting gated tomograms were acquired in a similar fashion. Quantitative and qualitative analyses were performed. Quantitative analysis was performed with the [facility] [id number] protocols. Very low dose limited CT scans of the chest are obtained through the level of the heart for attenuation correction of the stress and rest cardiac SPECT data. Attenuation corrected and non-attenuation corrected scans were processed for review, and the attenuation corrected scans were used for final interpretation of this study. Gating information reveals 100 and % accepted beats. There is no significant breast attenuation. There is no significant diaphragmatic attenuation. There is no significant gut cross talk. There is a small, mild reversible defect involving the distal anterior wall. Summed Stress Score (SSS) is 3 and Summed Difference Score (SDS) is 3. There is normal wall motion. There is no significant wall thickening. Stress and rest left ventricular ejection fraction (LVEF) are 65 % and 75 %, respectively. Transient ischemic dilatation ratio (TID) is 1.08, with a normal range up to 1.2 for patients stressed with the Robert protocol and up to 1.4 for patients stressed with the Lexiscan protocol. The very low dose CT scans through the level of the heart show no significant coronary artery calcifications. There is no adenopathy. Calcified mediastinal and left hilar lymph nodes are present. Heart size is normal without pericardial effusion. There are scattered atheromatous aortic calcifications. There is bibasilar dependent atelectasis. A tiny right pleural effusion is noted. There is no pulmonary nodule. A calcified granuloma is noted in the lingula. There are calcified splenic granulomata. Captured upper abdominal solid organs and hollow viscera are otherwise unremarkable. There are degenerative changes of the spine without aggressive osseous lesion. Impression: 1. Small, mild reversible defect involving the distal anterior wall. SSS is 3 and SDS is 3. 2. Normal wall motion on stress and rest. 3. Stress and rest LVEF are 65 % and 75 %, respectively. 4. TID ratio is 1.08. Dictated By: 07/17/18 1224 ANGELA LO MD. Signed By: 07/17/18 1242 ANGELA LO MD. [address] [facility] [place] [address] PH: DD: [phone] FAX: [phone] ~DIAGNOSTIC IMAGING REPORT~ Patient: GERRY MATTHEW : 1955 Sex: F Age: 63 Exam Name: XR CXR 1VW Exam Date: 07/16/18 Report # : [id number] CPT Code: 53376 EMR/MR #: [id number] Ordering: IRENE JONES Admiting: SVETLANA LANGE MD. Primary: Kev Drummond MD Attending: SVETLANA LANGE MD. Signed XR CXR 1VW 07/16/2018 8:56 AM HISTORY: [facility] ^DKA, hypotension, SOB Comparison: None. Findings: A single PA view of the chest demonstrates normal aeration without focal consolidation. A calcified granuloma projects over the left lateral lower lung. There is no pneumothorax or pleural effusion. The cardiomediastinal silhouette is normal in size with atheromatous calcifications in the arch of the tortuous thoracic aorta. The osseous structures are notable for degenerative and surgical changes at the cardiothoracic junction. Surgical clips project over the lower neck and upper mediastinum bilaterally. Impression: No radiographic evidence of acute cardiopulmonary process. Dictated By: 07/16/18 1018 ANGELA LO MD. Signed By: 07/16/18 1024 ANGELA LO MD. Patient Problems - Patient Problem List (1) Unstable angina Current Visit: Yes Status: Acute Code(s): I20.0 - Unstable angina Category: Medical (2) Poorly controlled diabetes mellitus Current Visit: Yes Status: Acute Code(s): E11.65 - Type 2 diabetes mellitus with hyperglycemia Category: Medical (3) Chest pressure Current Visit: Yes Status: Acute Code(s): R07.89 - Other chest pain Category: Medical (4) Hypertension Current Visit: Yes Status: Acute Code(s): I10 - Essential (primary) hypertension Qualifiers: Hypertension type: essential hypertension Qualified Code(s): I10 - Essential (primary) hypertension Category: Medical (5) DKA (diabetic ketoacidoses) Current Visit: Yes Status: Resolved Code(s): E13.10 - Other specified diabetes mellitus with ketoacidosis without coma Qualifiers: Diabetes mellitus type: type 1 Diabetes mellitus complication detail: without coma Qualified Code(s): E10.10 - Type 1 diabetes mellitus with ketoacidosis without coma Category: Medical (6) History of hypothyroidism Current Visit: Yes Status: Acute Code(s): Z86.39 - Personal history of other endocrine, nutritional and metabolic disease Category: Medical (7) Hypotension Current Visit: Yes Status: Resolved Code(s): I95.9 - Hypotension, unspecified Qualifiers: Hypotension type: unspecified hypotension type Qualified Code(s): I95.9 - Hypotension, unspecified Category: Medical (8) Positive cardiac stress test Current Visit: Yes Status: Acute Code(s): R94.39 - Abnormal result of other cardiovascular function study Category: Medical (9) Carotid artery disease Current Visit: Yes Status: Acute Code(s): I77.9 - Disorder of arteries and arterioles, unspecified Qualifiers: Carotid artery disease type: unspecified Laterality: left Qualified Code(s): I77.9 - Disorder of arteries and arterioles, unspecified Category: Medical (10) Status post carotid endarterectomy Current Visit: Yes Status: Acute Code(s): Z98.890 - Other specified postprocedural states Category: Surgical
[2018-07-17] MEDS ORDERED: Metoprolol TARTRATE Tab 25 MG TAB PO SCH (21:00)
== END 2018-07-17 16:01 | disposition short-term general hospital (02) | DRG 638 ==
LOC: MED/SURG 11:08 → ER 11:08
PROVIDERS: ADMIT Internal Medicine; ATTEND Family Medicine